=== PATIENT | male | born 1980 | race African-American/Black ===

== ENCOUNTER 2019-12-19 23:43 | Emergency (ER) | payer SELFPAY ==
[2019-12-19 23:55] VITALS: BP 159/106
--- NOTE | 2019-12-20 00:47 | ER Document Report ---
ED General - General Chief Complaint: Anxiety Stated Complaint: POSS ANXIETY Time Seen by Provider: 12/20/19 00:41 Mode of Arrival: Ambulatory Information source: Patient Notes: Is a 39-year-old -[place] male who comes in today for evaluation of some depression and elevated blood pressure. Apparently he has been under an increased amount of stress because his significant other has relapsed into drugs and he realized this evening that she was not going to be coming back to the house. He told his friend that he was going to take a couple of sleeping pills and go to bed. Apparently this was interpreted as a possible suicidal threat and the friends/family asked the deputies to come to the patient's house for a well check. Patient asserts that he had no intention of killing himself. He asserts that he had no suicidal or homicidal thoughts. He was encouraged by the ambulance crew to come in to be checked anyway. He does not want to come in as a voluntary behavioral health patient. He is already plugged in to a program to give him the support that he needs. His blood pressure has been high for some time. He would like to have that checked as an outpatient. He does not want any services from the emergency department tonight. Past Medical History - Social History Smoking Status: Unknown if Ever Smoked Family History: Reviewed & Not Pertinent Review of Systems - Review of Systems Notes: Constitutional: No fevers. No chills. EENT: No eye redness. No eye pain. No ear pain. No sore throat. Cardiovascular: No chest pain. No palpitations. Respiratory: No cough. No shortness of breath. No respiratory distress. Gastrointestinal: No abdominal pain. No nausea, vomiting, or diarrhea. Genitourinary: Atraumatic. No lesions. No pain. No discharge. Musculoskeletal: Atraumatic. No swelling. No deformities. Skin: No rash or lesions. Lymphatic: No swollen lymph nodes. Neurologic: No headache. No syncope. Positive insomnia Psychiatric: No suicidal or homicidal ideation. Physical Exam - Vital signs Vitals: Temp Pulse Resp BP Pulse Ox 98.6 F 99 17 159/106 H 97 12/19/19 23:54 12/19/19 23:54 12/19/19 23:54 12/19/19 23:54 12/19/19 23:54 - Notes Notes: General: Tearful appearing Cardiac: Well-perfused. Regular rate and rhythm. No murmurs, rubs, or gallops. Pulmonary: No respiratory distress. No cyanosis. Bilateral lung gray are clear to auscultation. Abdominal: Non-distended. Non-rigid. Bowels sounds are present in all four quadrants. No guarding or rebound. HEENT: Head is atraumatic. Conjunctivae not reddened. No tearing. PERRL. EOMI. Orbits atraumatic. No periorbital swelling or erythema. Oropharynx is without erythema, swelling, or exudates. Neck: Supple. No adenopathy. No meningismus. Dermatologic: Warm with good turgor. No rash. Atraumatic. Chest: Atraumatic. No chest wall tenderness to palpation. Musculoskeletal: Moves all extremities well. No range of motion deficits. no muscular or joint tenderness. No paraspinal muscle tenderness. no midline spinal tenderness or step-off. Genitourinary: Examination deferred Neurologic: No gross neurologic deficits. Psychiatric: Lightly depressed affect. Denies homicidal and suicidal ideation. Course - Re-evaluation Re-evalutation: 12/20/19 00:46 It sounds like the patient took some Unisom to try to fall asleep tonight after he realized that his girlfriend or was relapsing back into drugs and he realized that she probably would not be coming back to the house. When he told his friends that he was in to be taking the medicine it was interpreted as a threat of self-harm. Patient reassures us that he had no intention of purposefully overdosing to hurt himself. He has resources for behavioral health and anxiety. He was given information about the [facility] where he can get his physical exam done and his blood pressure can be treated. He does not have a blood pressure that is urgent or emergent this evening. Recommend that he follow-up to have this reassessed. Patient promises that he if he does become increasingly depressed and considers hurting himself or others that he will avail himself of our services in the future. - Vital Signs Vital signs: Temp Pulse Resp BP Pulse Ox 98.6 F 99 17 159/106 H 97 12/19/19 23:54 12/19/19 23:54 12/19/19 23:54 12/19/19 23:54 12/19/19 23:54 Discharge - Discharge Clinical Impression: Elevated blood pressure reading Insomnia Qualifiers: Insomnia type: other insomnia Qualified Code(s): G47.09 - Other insomnia Condition: Good Disposition: HOME, SELF-CARE Instructions: Insomnia ([facility]) Additional Instructions: Please return to the emergency department if you start to feel more depressed or if you have any thoughts of harming yourself or other people. Do not hesitate to seek help if you need us. You may see the [facility] for any basic health maintenance issues. Forms: Elevated Blood Pressure
== END 2019-12-20 00:50 | disposition home or self-care (01) ==
LOC: ER 23:43
DX: G47.00 Insomnia, unspecified (principal); F43.9 Reaction to severe stress, unspecified; R03.0 Elevated blood-pressure reading, without diagnosis of hypertension
CPT/HCPCS: 99283